=== PATIENT | female | born 1950 | race Hispanic/Latino ===

== ENCOUNTER → 2017-06-15 | Outpatient (CLI) | payer MEDICARE ==
[~2017-06-15] MED LIST: ASPI-555 PO; ATOR40TA71 PO; BACL10TA PO; CLOP75TA14 PO; FAMO20TA8 PO; LISI10TA7 PO
[2017-06-15 16:59] LABS: CREATININE 1.1 mg/dL (0.5-1.5)
== END ==
LOC: EDSEX → LAB 16:03
PROVIDERS: ATTEND Internal Medicine Cardiovascular Disease
DX: I10 Essential (primary) hypertension (principal); I71.4 Abdominal aortic aneurysm, without rupture
CPT/HCPCS: 36415; 82565; 84520

== ENCOUNTER → 2017-06-16 | Outpatient (CLI) | payer MEDICARE ==
[~2017-06-16] MED LIST changes: +IOPAMIDOL-370 100 ML VIAL IV ONE
== END ==
LOC: EDSEX → RAH 10:06
PROVIDERS: ATTEND Internal Medicine Cardiovascular Disease
DX: J84.10 Pulmonary fibrosis, unspecified (principal); I71.4 Abdominal aortic aneurysm, without rupture; I10 Essential (primary) hypertension
CPT/HCPCS: 74174; Q9967

== ENCOUNTER 2017-06-23 07:00 | Inpatient (IN) | payer MEDICARE ==
[~2017-06-23] VITALS: Ht 157.5 cm; Wt 74.4 kg
[2017-07-13 11:24] VITALS: BP 93/63
[2017-07-13 11:34] LABS: BILIRUBIN,URINE Negative (NEGATIVE); COLOR,URINE Yellow (YELLOW); GLUCOSE, URINE (UA) Negative (NEGATIVE); KETONES,URINE Negative (NEGATIVE); LEUKOCYTE ESTERASE ,URINE Negative (NEGATIVE); NITRATE,URINE Negative (NEGATIVE); OCCULT BLOOD,URINE Small (NEGATIVE); PROTEIN,URINE Negative (NEGATIVE)
[2017-07-13 11:35] LABS: APPEARANCE,URINE SLIGHTLY CLOUDY (CLEAR)
[2017-07-13 11:35] LABS: BASOPHILS % (AUTO) 0.7 % (0.0-5.0); HEMATOCRIT 46.7 % (42-54); LYMPHOCYTES % (AUTO) 19.4 % (21.0-51.0); MEAN CORPUSCULAR HEMOGLOBIN 30.2 pg (27.0-33.0); MEAN CORPUSCULAR HGB CONC 33.7 g/dL (32.0-36.0); MEAN CORPUSCULAR VOLUME 89.6 fL (79-99); MONOCYTES % (AUTO) 6.4 % (3.0-13.0); NEUTROPHILS % (AUTO) 70.5 % (40.0-77.0); PLATELET COUNT (AUTO) 315 K/uL (130-400); RED BLOOD CELL COUNT(AUTO) 5.21 MIL/uL (4.50-6.20); RED CELL DISTRIBUTION WIDTH 13.9 % (11.0-15.5); WHITE BLOOD COUNT (AUTO) 7.1 K/uL (4.8-10.8)
[2017-07-13 11:45] LABS: BACTERIA,URINE Rare /HPF (None Seen); RBC,URINE 0-1 /HPF (0-1); SQUAMOUS EPITHELIAL CELL,UR Rare /HPF (0-2); WBC,URINE 0-1 /HPF (0-1)
[2017-07-13 11:57] LABS: INR 0.99 (0.85-1.15); PARTIAL THROMBOPLASTIN TIME 27.5 SEC (26.3-35.5); PROTHROMBIN TIME 10.4 SEC (9.6-11.6)
[2017-07-13 12:02] LABS: CREATININE 1.1 mg/dL (0.5-1.5); POTASSIUM 5.1 mmol/L (3.5-5.1)
[2017-07-13] MEDS ORDERED: ASPI-555 PO (12:29)
[2017-07-13] MEDS ORDERED: ATOR40TA71 PO (12:29)
[2017-07-13] MEDS ORDERED: LISI10TA7 PO (12:29)
[2017-07-13] MEDS ORDERED: FAMO20TA8 PO (12:29)
[2017-07-13] MEDS ORDERED: BACL10TA PO (12:29)
[2017-07-13] MEDS ORDERED: CLOP75TA14 PO (12:29)
[2017-07-15] VITALS (20 sets, daily range): BP systolic 83–108; BP diastolic 46–66
[2017-07-15] MEDS ORDERED: SODIUM CHLORIDE 0.9% 1000ML 1,000 ML IV ONE (06:38)
[2017-07-15] MEDS ORDERED: CEFAZOLIN 1GM / D5W 50ML 100 ML ONE (06:57)
[2017-07-15] MEDS ORDERED: ISOVUE-300 100 ML VIAL IV ONE ×2 (06:58→07:09)
[2017-07-15] MEDS ORDERED: HEPARIN SODIUM 1000UNIT/ML 10ML VIAL ONE (06:58)
[2017-07-15] MEDS ORDERED: BACITRACIN 50,000 UNIT VIAL ONE (07:02)
[2017-07-15] MEDS ORDERED: MIDAZOLAM HCL 1 MG/ML 2ML VIAL ONE (07:03)
[2017-07-15] MEDS ORDERED: LIDOCAINE PF 2% 5ML ABBOJECT ONE (07:03)
[2017-07-15] MEDS ORDERED: SUCCINYLCHOLINE 200MG/10ML SYR ONE (07:03)
[2017-07-15] MEDS ORDERED: GLYCOPYRROLATE 0.2 MG/ML 5 ML VIAL ONE (07:03)
[2017-07-15] MEDS ORDERED: DEXAMETHASONE SOD PHOSPHATE 10MG/ML 1ML VIAL ONE (07:03)
[2017-07-15] MEDS ORDERED: FENTANYL CITRATE PF 50 MCG/1 ML 2ML VIAL ONE (07:04)
[2017-07-15] MEDS ORDERED: PROPOFOL 10 MG/ML 20ML VIAL IV ONE (07:04)
[2017-07-15] MEDS ORDERED: EPHEDRINE SULFATE 50 MG/ML AMPULE ONE (07:08)
[2017-07-15] MEDS ORDERED: MORPHINE SULFATE 4 MG/1ML SYG IV PRN (10:15)
[2017-07-15] MEDS ORDERED: SODIUM CHLORIDE 0.9% 1000ML 1,000 ML IV SCH (10:15)
[2017-07-15] MEDS ORDERED: ACETAMINOPHEN 325 MG TAB PO PRN (10:15)
[2017-07-15] MEDS ORDERED: ACETAMINOPHEN-CODEINE 300/30MG TAB PO PRN ×2 (10:15)
[2017-07-15] MEDS: CEFAZOLIN SODIUM 1 GM VIAL IVP SCH ×2 (15:35→23:25)
[2017-07-15] MEDS ORDERED: CEFAZOLIN 1GM / D5W 50ML 50 ML IV SCH (15:35)
[2017-07-15] MEDS ORDERED: ATORVASTATIN CALCIUM 40 MG TABLET PO SCH (21:00)
[2017-07-16] VITALS (17 sets, daily range): BP systolic 85–120; BP diastolic 51–75
[2017-07-16 03:44] LABS: HEMATOCRIT 30.9 % (42-54); MEAN CORPUSCULAR HEMOGLOBIN 31.7 pg (27.0-33.0); MEAN CORPUSCULAR HGB CONC 35.6 g/dL (32.0-36.0); PLATELET COUNT (AUTO) 191 K/uL (130-400); RED BLOOD CELL COUNT(AUTO) 3.47 MIL/uL (4.50-6.20); RED CELL DISTRIBUTION WIDTH 14.2 % (11.0-15.5); WHITE BLOOD COUNT (AUTO) 8.9 K/uL (4.8-10.8)
[2017-07-16 03:48] LABS: POTASSIUM 4.1 mmol/L (3.5-5.1)
[2017-07-16] MEDS ORDERED: CLOPIDOGREL BISULFATE 75 MG TAB PO SCH (09:00)
[2017-07-16] MEDS ORDERED: LISINOPRIL 10 MG TABLET PO SCH (09:00)
[2017-07-16] MEDS ORDERED: FAMOTIDINE 20MG TAB 20 MG TAB PO SCH (09:00)
[2017-07-16] MEDS ORDERED: BACLOFEN 10 MG TABLET PO SCH (09:00)
[2017-07-16] MEDS ORDERED: ASPIRIN 81 MG EC TAB PO SCH (09:00)
== END 2017-07-16 14:05 | disposition home or self-care (01) | DRG 269 ==
LOC: EDSTATUS 07-13 10:00 → DAHIP 07-15 06:10 → EDSEX 07-15 10:00 → 2CV 07-15 10:30 → 2BH 07-15 19:19
PROVIDERS: ADMIT Internal Medicine Cardiovascular Disease; ATTEND Internal Medicine Cardiovascular Disease
PROC: 04V03DZ Restriction of Abdominal Aorta with Intraluminal Device, Percutaneous Approach (ICD-10-PCS; 2017-07-15)
PROC: B4101ZZ Fluoroscopy of Abdominal Aorta using Low Osmolar Contrast (ICD-10-PCS; principal; 2017-07-15 07:00)
DX: I71.4 Abdominal aortic aneurysm, without rupture (principal); I69.354 Hemiplegia and hemiparesis following cerebral infarction affecting left non-dominant side; E78.5 Hyperlipidemia, unspecified; I10 Essential (primary) hypertension; G47.30 Sleep apnea, unspecified; Z87.891 Personal history of nicotine dependence
CPT/HCPCS: 34705; 34812; 36415; 71045; 80048; 81001; 85025; 85027; 85347; 85610; 85730; 86156; 86850; 86870; 86900; 86901; 86922; 93005; A4218; A4344; C1725; C1769; C1887; C1894; J0330; J0690; J1100; J1644; J2001; J2250; J2704; J3010; J3490; J7030; J7040; Q9967

== ENCOUNTER → 2017-10-23 | Outpatient (CLI) | payer MEDICARE ==
[~2017-10-23] MED LIST changes: +IOPAMIDOL-370 75 ML VIAL IV ONE; -LISI10TA7 PO
== END | disposition home or self-care (01) ==
LOC: RAH 09:40
PROVIDERS: ATTEND Internal Medicine Cardiovascular Disease
DX: I71.4 Abdominal aortic aneurysm, without rupture (principal); N32.89 Other specified disorders of bladder; I70.90 Unspecified atherosclerosis; K44.9 Diaphragmatic hernia without obstruction or gangrene; M47.895 Other spondylosis, thoracolumbar region
CPT/HCPCS: 74174; Q9967 ×2; 71275

== ENCOUNTER → 2021-02-13 | Outpatient (CLI) | payer MEDICARE ==
[~2021-02-13] MED LIST changes: -ASPI-555 PO; +ASPI-556 PO; -IOPAMIDOL-370 100 ML VIAL IV ONE; -IOPAMIDOL-370 75 ML VIAL IV ONE
[2021-02-13 10:45] LABS: CREATININE 1.2 mg/dL (0.5-1.5)
== END | disposition home or self-care (01) ==
LOC: LAB 10:07
PROVIDERS: ATTEND Internal Medicine Cardiovascular Disease
DX: I71.4 Abdominal aortic aneurysm, without rupture (principal); I10 Essential (primary) hypertension
CPT/HCPCS: 36415; 82565; 84520

== ENCOUNTER → 2023-01-12 | Outpatient (CLI) | payer MEDICARE ==
[~2023-01-12] MED LIST changes: +CLOP-31 PO; -CLOP75TA14 PO; +REGADENOSON 0.4 MG/5 ML PF SYG IVP ONE
== END | disposition home or self-care (01) ==
LOC: SHCH 08:44
PROVIDERS: ATTEND Internal Medicine Cardiovascular Disease
DX: I25.10 Atherosclerotic heart disease of native coronary artery without angina pectoris (principal)
CPT/HCPCS: 78452; 96374; 93017; J2785; A9500 ×2

== ENCOUNTER → 2023-03-11 | Outpatient (CLI) | payer MEDICARE ==
[~2023-03-11] MED LIST changes: -REGADENOSON 0.4 MG/5 ML PF SYG IVP ONE
== END | disposition home or self-care (01) ==
LOC: SHCH 02-03 08:59
PROVIDERS: ATTEND Internal Medicine Cardiovascular Disease
DX: I11.9 Hypertensive heart disease without heart failure (principal); I25.10 Atherosclerotic heart disease of native coronary artery without angina pectoris; E78.5 Hyperlipidemia, unspecified
CPT/HCPCS: 93306